=== PATIENT | female | born 1980 | race Caucasian/White ===

== ENCOUNTER 2023-12-09 13:51 | Emergency (ER) | payer BC ==
[~2023-12-09] VITALS: Ht 170.2 cm; Wt 107.0 kg
[2023-12-09 13:53] VITALS: BP 114/83; PULSE 86; RESP 16; TEMP 98; O2SAT 96
[2023-12-09 14:01] VITALS: O2SAT 96
[2023-12-09 14:16] VITALS: BP 115/68; PULSE 89; RESP 19; TEMP 98; O2SAT 96
[2023-12-09] MEDS: ONDANSETRON 4 MG/2 ML VIAL IVP ONE (14:31)
[2023-12-09 14:41] LABS: BASOPHILS # (AUTO) 0.1 K/uL (0.00-0.22); BASOPHILS % (AUTO) 0.9 % (0.0-2.0); EOSINOPHILS % (AUTO) 0.6 % (0.0-4.0); HEMATOCRIT 45.7 % (36-48); HEMOGLOBIN 15.6 g/dL (12.0-16.0); LYMPHOCYTES # (AUTO) 1.4 K/uL (2.5-16.5); LYMPHOCYTES % (AUTO) 20.5 % (20.5-51.1); MEAN CORPUSCULAR HEMOGLOBIN 31 pg (27-31); MEAN CORPUSCULAR HGB CONC 34 g/dL (33-37); MEAN CORPUSCULAR VOLUME 90.8 fL (80-94); MONOCYTES # (AUTO) 0.5 K/uL (0.8-1.0); MONOCYTES % (AUTO) 6.8 % (1.7-9.3); NEUTROPHILS # (AUTO) 4.8 K/uL (1.8-7.7); NEUTROPHILS % (AUTO) 71.2 % (42.2-75.2); PLATELET COUNT (AUTO) 239 K/uL (140-450); RED BLOOD CELL COUNT(AUTO) 5.03 MIL/uL (4.20-5.40); RED CELL DISTRIBUTION WIDTH 13.7 % (11.6-13.7); WHITE BLOOD COUNT (AUTO) 6.8 K/uL (4.8-10.8)
[2023-12-09 14:43] LABS: ANION GAP 13.2 (8-16); CALCIUM 9.3 mg/dL (8.5-10.1); CARBON DIOXIDE 24.4 mmol/L (21-32); CREATININE 0.7 mg/dL (0.6-1.3); POTASSIUM 3.6 mmol/L (3.5-5.1)
[2023-12-09] MEDS: ONDANSETRON 4 MG ODT PO ONE (14:55)
[2023-12-09 15:14] LABS: INR 1.17 (0.8-1.2); PARTIAL THROMBOPLASTIN TIME 34.7 secs (22-35.6); PROTHROMBIN TIME 12.2 secs (10.8-13.4)
== END 2023-12-09 16:13 | disposition home or self-care (01) ==
LOC: MED 13:51
DX: R00.2 Palpitations (principal); R11.0 Nausea; R20.2 Paresthesia of skin; R07.9 Chest pain, unspecified; T42.1X5A Adverse effect of iminostilbenes, initial encounter; D68.61 Antiphospholipid syndrome; Z88.2 Allergy status to sulfonamides; Z88.1 Allergy status to other antibiotic agents; Z88.6 Allergy status to analgesic agent; Y92.89 Other specified places as the place of occurrence of the external cause
CPT/HCPCS: 36415; 71045; 80048; 84484; 85025; 85379; 85610; 85730; 93005; 99285; Q0162; J2405